=== PATIENT | male | born 1960 | race American Indian/Alaskan Native ===

== ENCOUNTER 2018-04-09 21:04 | Emergency (ER) | payer OTHER ==
[2018-04-09 21:16] VITALS: BP 126/84; PULSE 80; RESP 20; TEMP 98.2; O2SAT 100
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
[2018-04-09] MEDS ORDERED: Lidocaine 2% Inj (20ml) INFIL ONE (21:20)
[2018-04-09] MEDS ORDERED: Lidocaine 2% MPF (5 ml) Inj ONE (21:24)
[2018-04-09] MEDS ORDERED: Bacitracin 500 Units/gm Oint Foilpak UD ONE (21:53)
== END 2018-04-09 21:17 | disposition left against medical advice (07) ==
LOC: C.ER 21:04
DX: S61.412A Laceration without foreign body of left hand, initial encounter (principal); X99.0XXA Assault by sharp glass, initial encounter; Y92.9 Unspecified place or not applicable

== ENCOUNTER 2018-04-24 11:08 | Emergency (ER) | payer MEDICAID ==
[2018-04-24 11:18] VITALS: BP 156/81; PULSE 92; RESP 20; TEMP 98.7; O2SAT 98; BMI 31.8
[2018-04-24] MEDS ORDERED: Bacitracin 500 Units/gm Oint Foilpak UD ONE (11:58)
[2018-04-24] MEDS ORDERED: Tmp-Smz 800 mg-160 mg DS Tab PO STA (12:09)
--- NOTE | 2018-04-24 12:12 | C.PDOC ---
History Of Present Illness 57 year old male presents to the ED for suture removal. Patient had sutures done on 04/09. Patient states hand still swollen, states he cleans it everyday with peroxide. Patient denies new injury, fall, trauma, weakness, numbness. Time Seen by Provider: 04/24/18 11:44 Chief Complaint (Nursing): Suture/Staple Removal History Per: Patient History/Exam Limitations: no limitations Onset/Duration Of Symptoms: Days Ago Current Symptoms Are (Timing): Better Location Of Injury: Left: Hand Recent travel outside of the [place]: No Additional History Per: Patient Past Medical History Reviewed: Historical Data, Nursing Documentation, Vital Signs Vital Signs: Last Vital Signs Temp 98.7 F 04/24/18 11:14 Pulse 92 H 04/24/18 11:14 Resp 20 04/24/18 11:14 BP 156/81 H 04/24/18 11:14 Pulse Ox 98 04/24/18 12:14 - Medical History PMH: No Chronic Diseases Surgical History: No Surg Hx Family History: States: Unknown Family Hx - Social History Hx Tobacco Use: Yes (1 yrs ago) Hx Alcohol Use: No Hx Substance Use: No Review Of Systems Constitutional: Negative for: Fever, Chills Cardiovascular: Negative for: Chest Pain Respiratory: Negative for: Shortness of Breath Gastrointestinal: Negative for: Nausea, Vomiting Musculoskeletal: Positive for: Hand Pain Skin: Negative for: Rash Neurological: Negative for: Weakness, Numbness Physical Exam - Physical Exam Appears: Non-toxic, No Acute Distress Skin: Normal Color, Warm, Dry Head: Atraumatic, Normacephalic Eye(s): bilateral: Normal Inspection Chest: Symmetrical Cardiovascular: Rhythm Regular Respiratory: Normal Breath Sounds, No Rales, No Rhonchi, No Wheezing Extremity: Normal ROM, No Tenderness, Capillary Refill (< 2 seconds), No Swelling, Other (left hand sutures, erythema around it.) Pulses: Left Radial: Normal, Right Radial: Normal Neurological/Psych: Oriented x3, Normal Speech, Normal Motor, Normal Sensation Gait: Steady ED Course And Treatment O2 Sat by Pulse Oximetry: 98 (ON RA) Pulse Ox Interpretation: Normal Medical Decision Making Medical Decision Making: Plan: * Keflex 500 mg PO * Bactrim 1 tab PO 3 sutures removed wound began dehiscing, will leave remaining [address]. There is an area of scant drainage, patient will be place on antibiotics. Disposition - Disposition Referrals: [facility] [Outside] Disposition: HOME/ ROUTINE Disposition Time: 12:10 Condition: GOOD Additional Instructions: Wash the wound with soap and water twice a day, and then apply bacitracin. Return to the ED within 3-4 days for wound check. 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 - Scribe Statement The provider has reviewed the documentation as recorded by the Scribe Jorge Alberto Loya All medical record entries made by the Scribe were at my direction and personally dictated by me. I have reviewed the chart and agree that the record accurately reflects my personal performance of the history, physical exam, medical decision making, and the department course for this patient. I have also personally directed, reviewed, and agree with the discharge instructions and disposition.
[2018-04-24] MEDS ORDERED: Tmp-Smz 800 mg-160 mg DS Tab ONE (12:19)
== END 2018-04-24 12:22 | disposition home or self-care (01) ==
LOC: C.ER 11:08
DX: Z48.02 Encounter for removal of sutures (principal); T81.30XA Disruption of wound, unspecified, initial encounter; Y84.9 Medical procedure, unspecified as the cause of abnormal reaction of the patient, or of later complication, without mention of misadventure at the time of the procedure

== ENCOUNTER 2018-05-10 13:06 | Emergency (ER) | payer MEDICAID ==
[2018-05-10 13:06] VITALS: BMI 31.8
[2018-05-10 13:23] VITALS: BP 150/98; PULSE 85; RESP 20; TEMP 98.8; O2SAT 99
[2018-05-10] MEDS ORDERED: Bacitracin 500 Units/gm Oint Foilpak UD TOP ONE (13:44)
--- NOTE | 2018-05-10 13:46 | C.PDOC ---
History Of Present Illness 57 y/o male presents to the ER for suture removal from left hand. Patient had repair over one week ago. Denies fever, swelling or drainage. Time Seen by Provider: 05/10/18 13:24 Chief Complaint (Nursing): Wound Check History Per: Patient History/Exam Limitations: no limitations Past Medical History Reviewed: Historical Data, Nursing Documentation, Vital Signs Vital Signs: Last Vital Signs Temp 98.8 F 05/10/18 13:20 Pulse 85 05/10/18 13:20 Resp 20 05/10/18 13:20 BP 150/98 H 05/10/18 13:20 Pulse Ox 99 05/10/18 14:52 - Medical History PMH: No Chronic Diseases Surgical History: No Surg Hx Family History: States: No Known Family Hx - Social History Hx Tobacco Use: Yes (1 yrs ago) Hx Alcohol Use: Yes Hx Substance Use: No Review Of Systems Except As Marked, All Systems Reviewed And Found Negative. Constitutional: Negative for: Fever, Chills Physical Exam - Physical Exam Appears: Non-toxic, No Acute Distress Skin: Normal Color, Warm, Dry, Other (left hand: sutures intact dorsal area and scabbing to lateral side) Head: Atraumatic, Normacephalic Eye(s): bilateral: Normal Inspection Neurological/Psych: Oriented x3, Normal Speech ED Course And Treatment O2 Sat by Pulse Oximetry: 99 (RA) Pulse Ox Interpretation: Normal Medical Decision Making Medical Decision Making: Sutures removed from left hand without difficulty. Patient tolerated well and has been discharged. 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 - Scribe Statement The provider has reviewed the documentation as recorded by the Jeannie Lofton Provider Attestation All medical record entries made by the Scribe were at my direction and personally dictated by me. I have reviewed the chart and agree that the record accurately reflects my personal performance of the history, physical exam, medical decision making, and the department course for this patient. I have also personally directed, reviewed, and agree with the discharge instructions and disposition.
[2018-05-10] MEDS ORDERED: Bacitracin 500 Units/gm Oint Foilpak UD ONE (13:58)
== END 2018-05-10 14:13 | disposition home or self-care (01) ==
LOC: C.ER 13:06
DX: Z48.02 Encounter for removal of sutures (principal)